=== PATIENT | female | born 1990 | race African-American/Black ===

== ENCOUNTER 2016-11-02 22:18 | Emergency (ER) | payer SELFPAY ==
[~2016-11-02] VITALS: Ht 157.5 cm; Wt 101.9 kg
[2016-11-02 22:35] LABS: HEMATOCRIT 32.9 % (36.0-46.0); MCH 28.5 PG (29.0-34.0); MCHC 35.3 G/DL (30.0-36.0); MCV 80.8 FL (83-99); PLATELET COUNT 167 K/uL (156-360); RBC DIS.WIDTH-CV 14.2 % (11.8-14.6); RBC DIS.WIDTH-SD 40.7 % (39-53); RED BLOOD COUNT 4.07 M/uL (3.80-5.20); WHITE BLOOD COUNT 10.1 K/uL (4.1-10.2)
[2016-11-02 22:46] LABS: CHLORIDE 107 mEq/L (99-109); POTASSIUM 3.6 mEq/L (3.7-5.4); SODIUM 134 mEq/L (136-147)
[2016-11-02 22:48] LABS: GLUCOSE 87 mg/dL (70-99)
[2016-11-02 22:49] LABS: ANION GAP 7 MEQ/L (2-14)
[2016-11-02 22:50] LABS: TOTAL BILIRUBIN 0.2 mg/dL (0.0-1.0)
[2016-11-02 22:51] LABS: ALKALINE PHOSPHATASE 50 IU/L (3-129)
[2016-11-02 22:53] LABS: UREA NITROGEN (BUN) 7 mg/dL (9-23)
[2016-11-02 22:54] LABS: GFR ESTIMATE (CALCULATED) > 59 mL/min/
[2016-11-02 23:19] LABS: QUANTITATIVE HCG 45371.1 MIU/ML
[2016-11-02 23:55] LABS: ADD MIUA? YES; BILIRUBIN NEGATIVE; BLOOD NEGATIVE; COLOR YELLOW ((YELLOW)); GLUCOSE (STRIP) NEGATIVE; KETONES NEGATIVE; LEUKOCYTES TRACE; NITRITE NEGATIVE; PROTEIN (STRIP) NEGATIVE; SPECIFIC GRAVITY 1.007 (1.000-1.030); UROBILINOGEN 0.2 MG/DL (0.2-1.0)
[2016-11-03 00:40] LABS: BACTERIA 1+; CASTS NONE SEEN /LPF; CRYSTALS NONE SEEN; EPITHELIAL CELLS 2+; MUCUS NONE SEEN; RED BLOOD CELLS RARE /HPF (0-5); UCUL ADDED? NO; WHITE BLOOD CELLS RARE /HPF (0-5)
[2016-11-03 01:22] VITALS: BP 127/78
== END 2016-11-03 01:23 | disposition home or self-care (01) ==
LOC: RME 22:18 → EME 22:18 → RME 11-03 01:23
DX: O26.92 Pregnancy related conditions, unspecified, second trimester (principal); R10.30 Lower abdominal pain, unspecified; Z3A.17 17 weeks gestation of pregnancy
CPT/HCPCS: 76805; 80053; 81003; 84702; 85027; 99281; 99283

== ENCOUNTER 2017-01-17 09:57 | Outpatient (CLI) | payer OTHER ==
[~2017-01-17] VITALS: Ht 157.5 cm; Wt 97.3 kg
[2017-01-17 10:31] VITALS: BP 143/83
[2017-01-17 10:32] VITALS: BP 120/70
[2017-01-17 11:47] VITALS: BP 125/77
[2017-01-17 12:50] VITALS: BP 127/76
[2017-01-17 13:48] LABS: AMPHETAMINES QUANT VALUE 0 NG/ML; BARBITUATES QUANT VALUE 0 NG/ML; BENZODIAZEPINES QUANT VALUE 0 NG/ML; BENZODIAZEPINES, URINE SCREEN Negative (200 ng/mL); MARIJUANA QUANT VALUE 0 NG/ML; OPIATES QUANTITATIVE VALUE 0 NG/ML; PHENCYCLIDINE QUANT VALUE 0 NG/ML
[2017-01-18 14:27] LABS: CHLAMYDIA TRACHOMATIS NEGATIVE; NEISSERIA GONORRHOEAE NEGATIVE
== END 2017-01-17 13:20 | disposition home or self-care (01) ==
LOC: LDRP-OP 09:57 → 2WEST 09:58 → LDRP-OP 05-07 16:13
PROVIDERS: Nurse Practitioner
DX: O26.899 Other specified pregnancy related conditions, unspecified trimester (principal); Z3A.00 Weeks of gestation of pregnancy not specified
CPT/HCPCS: 59025; 80306 90; 87086; 87491; 87591; G0378

== ENCOUNTER 2017-05-29 20:26 | Emergency (ER) | payer OTHER ==
[~2017-05-29] VITALS: Ht 157.5 cm; Wt 91.9 kg
[2017-05-29 21:04] LABS: HEMATOCRIT 37.8 % (36.0-46.0); MCH 24.1 PG (29.0-34.0); MCHC 32.3 G/DL (30.0-36.0); MCV 74.7 FL (83-99); PLATELET COUNT 172 K/uL (156-360); RBC DIS.WIDTH-CV 18.8 % (11.8-14.6); RBC DIS.WIDTH-SD 50.6 % (39-53); RED BLOOD COUNT 5.06 M/uL (3.80-5.20); WHITE BLOOD COUNT 5.6 K/uL (4.1-10.2)
[2017-05-29 21:20] LABS: ADD MIUA? NO; BILIRUBIN NEGATIVE; BLOOD NEGATIVE; COLOR STRAW ((YELLOW)); GLUCOSE (STRIP) NEGATIVE; KETONES NEGATIVE; LEUKOCYTES NEGATIVE; NITRITE NEGATIVE; PROTEIN (STRIP) NEGATIVE; SPECIFIC GRAVITY 1.012 (1.000-1.030); UCUL ADDED? NO; UROBILINOGEN 0.2 MG/DL (0.2-1.0)
[2017-05-29 21:26] LABS: ANION GAP 8 MEQ/L (2-14); CHLORIDE 109 MEQ/L (99-109); POTASSIUM 4.1 MEQ/L (3.7-5.4); SAMPLE HEMOLYSIS CHECK 0; SAMPLE ICTERIC CHECK 0; SAMPLE LIPEMIA CHECK 0; SODIUM 141 MEQ/L (136-147); TOTAL BILIRUBIN 0.2 MG/DL (0.0-1.0)
[2017-05-29 21:32] LABS: ALKALINE PHOSPHATASE 92 IU/L (3-129); GFR ESTIMATE (CALCULATED) > 59 mL/min/; GLUCOSE 95 mg/dL (70-99); LIPASE 59 U/L (1.0-51.0); UREA NITROGEN (BUN) 17 mg/dL (9-23)
[2017-05-29 22:03] LABS: QUANTITATIVE HCG < 4.0 MIU/ML
[2017-05-29 22:46] VITALS: BP 133/100
== END 2017-05-29 22:49 | disposition home or self-care (01) ==
LOC: EME 20:26
PROVIDERS: Physician Assistant Medical
DX: R51 Headache (principal); R10.9 Unspecified abdominal pain
CPT/HCPCS: 80053; 81003; 83690; 84702; 85027; 99281; 99284; J1885